=== PATIENT | male | born 1970 | race Caucasian/White ===

== ENCOUNTER → 2020-10-15 | Outpatient (CLI) | payer BC ==
[~2020-10-15] MED LIST: ASPI-630 PO; ATOR20TA58 PO; CLOP75TA PO
--- NOTE | 2020-10-15 16:12 | RAD ---
MR#: [id number] Date of Study: 10/15/2020 Ordering Physician: KAYCE HAYES, Referring Physician: KAYCE HAYES, Tech: APPROVED REPORT Patient Location: OUT-PATIENT Indications PAD Risk Factors Smoking VELOCITY AND DOPPLER WAVEFORM ANALYSIS RIGHT cm/secWaveformSeverity LEFT cm/secWaveform Severity dCFA 117.0MonophasicdCFA 61.0Monophasic Prof Fem Art. 69.0MonophasicProf Fem Art. 34.0Monophasic Fem Art Prox. 83.0TriphasicFem Art Prox. 48.0Monophasic Fem Art Mid. 85.0TriphasicFem Art Mid. 53.0Monophasic Fem Art Dist. 79.0TriphasicFem Art Dist. 44.0Monophasic Pop Art(Fossa) 56.0TriphasicPop Art([place]) 34.0Monophasic DATA MANAGEMENT ASSOCIATE Dist. 43.0TriphasicPTA Dist. 22.0Monophasic Per Art Dist.34.0MonophasicPer Art Dist.17.0Monophasic ILEANA Prox. 48.0MonophasicATA Prox. 42.0Monophasic DPA 42BiphasicDPA 21Monophasic Findings Grayscale images of the bilateral lower extremity arterial vessels demonstrates mild to moderate diff use atherosclerosis. On the right side no significant obstruction is noted. There are monophasic wa veforms at the level of the common femoral artery suggestive of more proximal inflow disease but belo w the level of the common femoral artery there are mostly biphasic waveforms with near normal velocit ies and three-vessel runoff. On the left side there are monophasic waveforms extending from the comm on femoral artery to the below-knee vessels with diminished velocities in the below-knee segment cons istent with more proximal obstruction. Critical Notification Critical Value: No <Conclusion> 1. No critical right lower extremity arterial disease with three-vessel runoff 2. Monophasic waveforms throughout the left lower extremity suggestive of either loss of arterial el asticity due to atherosclerotic calcification versus aortic inflow disease, correlate with clinical e xam and consider JOSSUE study. Signed by : Eagle Aguilera, Electronically Approved : 10/15/2020 16:12:02
== END ==
LOC: KCIC US 09:56
PROVIDERS: ATTEND Internal Medicine Cardiovascular Disease
DX: I70.203 Unspecified atherosclerosis of native arteries of extremities, bilateral legs (principal)
CPT/HCPCS: 93925

== ENCOUNTER → 2020-11-07 | Outpatient (CLI) | payer BC ==
[2018-03-18 10:34] VITALS: BP 132/65
== END ==
LOC: LAB 08:35
PROVIDERS: ATTEND Internal Medicine Cardiovascular Disease
DX: Z01.812 Encounter for preprocedural laboratory examination (principal); I73.9 Peripheral vascular disease, unspecified; Z20.822 Contact with and (suspected) exposure to COVID-19
CPT/HCPCS: U0003

== ENCOUNTER 2020-11-11 07:40 | Outpatient (CLI) | payer BC ==
[~2020-11-11] VITALS: Ht 182.9 cm; Wt 95.3 kg
[2020-11-11] VITALS (14 sets, daily range): BP systolic 100–142; BP diastolic 54–85
[~2020-11-11 07:40] MED LIST changes: -ASPI-630 PO; +IODIXANOL 320 MG/ML 100 ML VIAL. ONE; +LIDOCAINE 1% Multi-Dose 20 ML VIAL. ONE
[2020-11-11 08:01] LABS: HEMATOCRIT 45.3 % (39.0-53.0); HEMOGLOBIN 15.9 g/dL (13.0-17.5); RED BLOOD COUNT 4.77 x10^6/uL (4.30-5.70); RED CELL DISTRIBUTION WIDTH 12.5 % (11.5-14.5)
[2020-11-11 08:11] LABS: CALCIUM 8.8 mg/dL (8.5-10.1); GFR 79.4; POTASSIUM 3.9 mmol/L (3.5-5.1); PROTHROMBIN TIME PATIENT 13.3 SEC (11.7-14.0)
[2020-11-11] MEDS ORDERED: ASPI-630 PO (08:16)
[2020-11-11] MEDS ORDERED: MIDAZOLAM HCL/PF 5 MG/5 ML VIAL. ONE (08:43)
[2020-11-11] MEDS ORDERED: fentaNYL PF VIAL 100 MCG/2 ML VIAL ONE ×3 (08:43→10:06)
[2020-11-11] MEDS ORDERED: HEPARIN for IV BOLUS 10,000 UNIT/10 ML VIAL. ONE (08:46)
[2020-11-11] MEDS ORDERED: NITROGLYCERIN 200 MCG/2 ML SYRINGE FOR CATH/VASC LAB. ONE (08:46)
[2020-11-11] MEDS ORDERED: VERAPAMIL 5 MG/2 ML VIAL. ONE (08:46)
--- NOTE | 2020-11-11 08:46 | PDOC ---
MODERATE SEDATION ASSESSMENT RISKS/ALTERNATIVES Risks/Alternatives Risks and alternatives of this type of sedation and procedure discussed with: RISK/ALTERNATIVES: Patient H & P ON CHART H & P H & P on chart and reviewed for co-morbid conditions and appropriate labs. H&P ON CHART: Yes STATUS PREG STATUS ASSESSED: N/A MEDS/ALLERGIES REVIEWED Meds/Allergies Reviewed Medications and Allergies including time and route of recently administered narcotics and sedatives. MEDS/ALLERGIES REVIEWED: Yes ASA RATING ASA RATING: II AIRWAY ASSESSMENT Airway Assessment Airway patency, oral function limitations, presence of caps, crowns, dentures, partials, and ability to extend neck assessed. AIRWAY ASSESSMENT: Yes MALLAMPATI SCORE MALLAMPATI SCORE: II PRE-SEDATION ASSESSMENT PRE-SEDATION ASSESSMENT: Yes KAYCE HAYES MD Nov 11, 2020 08:46
[2020-11-11] MEDS ORDERED: MIDAZOLAM HCL/PF 2 MG/2 ML VIAL. ONE ×2 (09:02→10:06)
[2020-11-11] MEDS ORDERED: diphenhydrAMINE 50 MG/ML VIAL ONE (09:20)
[2020-11-11] MEDS ORDERED: fentaNYL PF VIAL 100 MCG/2 ML VIAL IV ONE (09:30)
[2020-11-11] MEDS ORDERED: MIDAZOLAM HCL/PF 2 MG/2 ML VIAL. IV ONE (09:30)
[2020-11-11] MEDS ORDERED: IODIXANOL 320 MG/ML 100 ML VIAL. IART ONE (09:30)
[2020-11-11] MEDS ORDERED: NITROGLYCERIN 200 MCG/2 ML SYRINGE FOR CATH/VASC LAB. IART ONE (09:30)
[2020-11-11] MEDS ORDERED: MIDAZOLAM HCL/PF 5 MG/5 ML VIAL. IV ONE (09:30)
[2020-11-11] MEDS ORDERED: VERAPAMIL 5 MG/2 ML VIAL. IART ONE (09:30)
[2020-11-11] MEDS ORDERED: HEPARIN for IV BOLUS 10,000 UNIT/10 ML VIAL. IART ONE (09:30)
[2020-11-11] MEDS ORDERED: LIDOCAINE 1% Multi-Dose 20 ML VIAL. INJ ONE (09:30)
[2020-11-11] MEDS ORDERED: HEPARIN for IV BOLUS 10,000 UNIT/10 ML VIAL. IV ONE (09:30)
[2020-11-11] MEDS ORDERED: CLOPIDOGREL BISULFATE 75 MG TABLET PO ONE (10:30)
[2020-11-11] MEDS ORDERED: ASPIRIN 325 MG TABLET PO ONE (10:30)
[2020-11-11] MEDS ORDERED: IV 1/2 NORMAL SALINE 1,000 ML IV SCH (10:45)
[2020-11-11] MEDS ORDERED: HYDROcodone/APAP 5/325MG 1 TAB TABLET PO ONE (11:00)
[2020-11-11] MEDS ORDERED: diphenhydrAMINE 50 MG/ML VIAL IVP ONE (11:00)
--- NOTE | 2020-11-11 11:15 | CARD ---
MR#: [id number] Date of Study: 11/11/2020 Ordering Physician: KAYCE EATON, Referring Physician: KAYCE EATON, Tech: RT Yasmani(R) APPROVED REPORT Patient StatusOUT-PATIENT Shop Director: RT Yasmani(R) Procedure(s) performed: 1. Aortogram with bilateral lower extremity runoff via right transradial cynthia charlton 2. Successful MASON HELPER to chronic in-stent occlusion involving the left common iliac artery and MASON HELPER to th e left tibioperoneal trunk and posterior tibial artery FT 35.9 MIN DOSE [id number] CONTRAST 109ML MODERATED SEDATION 117MINS INDICATION FOR PROCEDURE The indication(s) include : Peripheral artery disease with claudication. CASE TECHNIQUE After explaining the risks, benefits, and alternative options, informed consent was obtained from the patient. IV conscious sedation was used throughout procedure with appropriate monitoring and was per formed in the presence of a registered nurse who was an independent trained observer other than the renita wallace performing the procedure. During this case, Fluoroscopy and low osmolar contrast were used f or imaging. Specimen(s) Removed: No Estimated Blood loss: 20 cc's. PROCEDURE NARRATIVE After explaining the risk, benefits and alternative options, informed consent was obtained from patie nt. Patient was brought to the cardiac Sales Product Manager and his right wrist was prepped and draped in the us ual fashion after confirming a positive modified Jimy's test. Arterial access was obtained in the r ight radial artery and 6 Czech sheath was inserted. A 6 Czech R2P PVI multicurve catheter was then advanced under fluoroscopic guidance and with the tip positioned in the distal descending aorta, aor to iliac angiography was performed. The catheter was then advanced into the right common iliac arter y and selective right lower extremity angiography was performed. We decided to perform selective lef t lower extremity angiography after intervening on the left common iliac artery due to poor distal fi lling from the occlusion. FINDINGS: 1. No significant stenosis involving the distal descending aorta 2. The previously placed stent in the right common iliac artery was patent. The stent in the left c ommon iliac artery showed 100% flush occlusion with distal reconstitution of left external iliac ladonna ry via collaterals. 3. No significant stenosis was noted in the right external iliac, common femoral, superficial and de ep femoral, popliteal arteries with three-vessel runoff below the knee. INTERVENTION The sheath in the right wrist was exchanged to a 6 Czech long R2P slender sheath was then advanced u nder fluoroscopy guidance the tip was positioned in the distal descending aorta. With the help of ba ckup support from the PVI catheter, the chronic total occlusion involving the left common iliac arter y was crossed with a 0.035 inch Glidewire. Multiple inflations were then performed within this lesio n using 8 x 40 mm [employer] [place] balloon. Follow-up angiography showed resolution of the stenosis to 0%. Subsequent left lower extremity angiography did not show any significant stenosis involving left exte rnal iliac, common femoral, superficial and deep femoral, popliteal and anterior tibial arteries but showed flush occlusion of left tibioperoneal trunk probably from distal embolization from the CLEANER GREASER. T his was then crossed with a 0.014 inch Glidewire advantage guidewire into the left posterior tibial a rtery. The TP trunk and the proximal segment of the left posterior tibial artery were dilated with 3 .0 x 200 mm Terumo R2P crosstella balloon. Follow-up angiography showed patent TP trunk and posterio r tibial artery. Peroneal artery showed proximal segment occlusion. We decided to manage this medic ally since review of prior angiography did not show any significant caliber vessel beyond the proxima l segment. Patient tolerated the procedure well. Hemostasis in the right wrist was achieved using T R band. There were no immediate complications. Conclusion 1. 100% chronic total occlusion within the stent and left common iliac artery 2. Successful MASON HELPER to in-stent occlusion of the left common iliac artery and MASON HELPER to the left TP trunk and posterior tibial arteries. Recommendations Vascular risk factor modification including smoking cessation. Signed by : Kayce Eaton, Electronically Approved : 11/11/2020 11:15:05
--- NOTE | 2020-11-11 14:00 | NUR ---
Discharge Note: [facility] Discharge instructions and discharge home medications reviewed with Patient and a copy given. All questions have been answered and understanding verbalized. The following instructions and handouts were given: Radial site care, moderate sedation and smoking cessation. Discontinued left peripheral IV, bandaid applied and intact. Right radial site dressing C/D/I and armboard secure. Patient discharged to home with his sister via private vehicle.
== END 2020-11-11 14:10 ==
LOC: CCL 07:40 → MERGE 08:30 → CCL 14:10
PROVIDERS: ATTEND Internal Medicine Cardiovascular Disease
DX: I73.9 Peripheral vascular disease, unspecified (principal); M19.90 Unspecified osteoarthritis, unspecified site; F17.210 Nicotine dependence, cigarettes, uncomplicated; Z79.82 Long term (current) use of aspirin; Z79.899 Other long term (current) drug therapy; Z98.890 Other specified postprocedural states
CPT/HCPCS: 36415; 37220; 37228; 75625; 75716; 80048; 85027; 85610; 99152; 99153; C1725; C1769; C1894; J1200; J1644; J2250; J3010; J3490; Q9967

== ENCOUNTER → 2021-05-22 | Outpatient (CLI) | payer BC ==
[2020-11-11 13:25] VITALS: BP 126/72
[~2021-05-22] MED LIST changes: +ASPI-630 PO; -IODIXANOL 320 MG/ML 100 ML VIAL. ONE; -LIDOCAINE 1% Multi-Dose 20 ML VIAL. ONE
--- NOTE | 2021-05-22 14:11 | CARD ---
MR#: [id number] Date of Study: 05/22/2021 Ordering Physician: KAYCE HAYES, Referring Physician: KAYCE HAYES, Tech: Mayr Holly [facility] APPROVED REPORT EXAM: Two-dimensional and M-mode echocardiogram with Doppler and color Doppler. Other Information Quality : GoodHR: 57bpm Rhythm : NSR INDICATION RISK FACTORS Hyperlipidemia Smoking 2D DIMENSIONS RVDd3.2 (2.9-3.5cm)Left Atrium(2D)3.6 (1.6-4.0cm) IVSd1.1 (0.7-1.1cm)Aortic Root(2D)3.5 (2.0-3.7cm) LVDd4.7 (3.9-5.9cm)LVOT Diameter2.1 (1.8-2.4cm) PWd1.1 (0.7-1.1cm)LVDs3.2 (2.5-4.0cm) FS (%) 33.3 %SV64.1 ml LVEF(%)61.9 (>50%) Aortic Valve AoV Peak Satya.152.0cm/sAoV VTI35.9cm AO Peak GR.9.2mmHgLVOT Peak Satya.121.2cm/s AO Mean GR.5mmHgAVA (VMAX)2.81cm2 Mitral Valve MV E Gbeuhtrg42.3cm/sMV DECEL HHVU518am MV A Nvpzvdsh15.2cm/sE/A Ratio1.3 Pulmonary Valve PV Peak Qmsrrbuu517.8cm/s Tricuspid Valve TR P. Anebqnxh041fc/sTR Peak Gr.28mmHg LEFT VENTRICLE The left ventricle is normal size. There is borderline concentric left ventricular hypertrophy. The l eft ventricular systolic function is normal and the ejection fraction is within normal range. Estimat ed ejection fraction 60%. There is normal LV segmental wall motion. The left ventricular diastolic fu nction and filling is normal for age. RIGHT VENTRICLE The right ventricle is normal size. There is normal right ventricular wall thickness. The right ventr icular systolic function is normal. ATRIA The left atrium size is normal. The right atrium size is normal. The interatrial septum is intact wit h no evidence for an atrial septal defect or patent foramen ovale as noted on 2-D or Doppler imaging. AORTIC VALVE The aortic valve is normal in structure and function. Doppler and Color Flow revealed no significant aortic regurgitation. There is no significant aortic valvular stenosis. MITRAL VALVE The mitral valve is normal in structure and function. There is no evidence of mitral valve prolapse. There is no mitral valve stenosis. Doppler and Color-flow revealed trace mitral regurgitation. TRICUSPID VALVE The tricuspid valve is normal in structure and function. Doppler and Color Flow revealed trace tricus pid regurgitation. Estimated PAP 31 mmHg. There is no tricuspid valve stenosis. PULMONIC VALVE Doppler and Color Flow revealed trace pulmonic valvular regurgitation. There is no pulmonic valvular stenosis. GREAT VESSELS The aortic root is normal in size. The ascending aorta is normal in size. The IVC is normal in size a nd collapses >50% with inspiration. PERICARDIAL EFFUSION There is no evidence of significant pericardial effusion. Critical Notification Critical Value: No <Conclusion> The left ventricular systolic function is normal and the ejection fraction is within normal range. E stimated ejection fraction 60%. There is normal LV segmental wall motion. Signed by : Eagle Aguilera, Electronically Approved : 05/22/2021 14:10:51
== END ==
LOC: ECHO 07:38
PROVIDERS: ATTEND Internal Medicine Cardiovascular Disease
DX: I51.7 Cardiomegaly (principal); E78.5 Hyperlipidemia, unspecified
CPT/HCPCS: 93306

== ENCOUNTER → 2021-11-23 | Outpatient (CLI) | payer BC ==
[2020-11-11 13:25] VITALS: BP 126/72
--- NOTE | 2021-11-24 12:13 | RAD ---
MR#: [id number] Date of Study: 11/23/2021 Ordering Physician: KAYCE HAYES, Referring Physician: KAYCE HAYES, Tech: Elton Alarcon MBA, RDMS, RVT, RDCS, RTR APPROVED REPORT Patient Location: OUT-PATIENT Indications PAD VELOCITY AND DOPPLER WAVEFORM ANALYSIS RIGHT cm/secWaveformSeverity LEFT cm/secWaveform Severity dCFA 166.0TriphasicdCFA 80.0Triphasic Prof Fem Art. 77.0MonophasicProf Fem Art. 47.0Monophasic Fem Art Prox. 113.0TriphasicFem Art Prox. 54.0Triphasic Fem Art Mid. 120.0TriphasicFem Art Mid. 106.0Triphasic Fem Art Dist. 102.0TriphasicFem Art Dist. 95.0Triphasic Pop Art(Fossa) 75.0TriphasicPop Art([place]) 89.0Triphasic BEAMING MACHINE OPERATOR Prox. 82.0TriphasicPTA Prox. 66.0Monophasic BEAMING MACHINE OPERATOR Dist. 102.0TriphasicPTA Dist. 75.0Monophasic Per Art Mid. Per Art Mid. 86.0Monophasic ILEANA Prox. 62.0TriphasicATA Prox. 75.0Monophasic DPA 56TriphasicDPA 58Monophasic Findings Grayscale images the bilateral lower extremity arterial vessels demonstrates mild to moderate diffuse atherosclerosis. Overall there are mostly biphasic waveforms. Scattered monophasic waveforms are noted suggestive of arterial inelasticity but no focal high-grade stenosis is identified based on velocity criteria. The right peroneal artery was not visualized, cannot rule out occlusion. Otherwise there is two-vess el runoff on the right side and three-vessel runoff on the left side. Critical Notification Critical Value: No <Conclusion> 1. No significant above-knee disease bilaterally. 2. Three-vessel runoff in the left lower extremity without critical stenosis 3. Two-vessel runoff in the right lower extremity, cannot rule out peroneal artery occlusion. Signed by : Eagle Aguilera, Electronically Approved : 11/24/2021 12:13:22
== END ==
LOC: US 15:38
PROVIDERS: ATTEND Internal Medicine Cardiovascular Disease
DX: I70.203 Unspecified atherosclerosis of native arteries of extremities, bilateral legs (principal)
CPT/HCPCS: 93925